=== PATIENT | female | born 1940 | race African-American/Black ===

== ENCOUNTER 2020-01-23 11:23 | Emergency (ER) | payer OTHER, MEDICAID ==
[~2020-01-23] VITALS: Ht 157.5 cm; Wt 52.0 kg
--- NOTE | 2020-01-23 11:48 | PHYS DOC ---
General Adult EDM: Chief Complaint: WEAKNESS/GENERALIZED HPI: HPI: Patient is a 79 year old female who presents with states the last 3 days she has had generalized weakness. Patient states her only history is diabetes and hypertension she has been taking her medications as prescribed. Patient denies abdominal pain, nausea, vomiting, chest pain, shortness of breath, dizziness, fever, chills, nasal congestion, cough, lack of taste or smell, headache, focal weakness, vision changes, dysuria, back pain, neck pain, falls. She states she is not traveling or been rounding by also is been sick. Denies any pain. Review of Systems: Review of Systems: Constitutional: Denies fever or chills. [] Eyes: Denies change in visual acuity. [] HENT: Denies nasal congestion or sore throat. Yellowing of sclera. [] Respiratory: Denies cough or shortness of breath. [] Cardiovascular: Denies chest pain or edema. [] GI: Denies abdominal pain, nausea, vomiting, bloody stools or diarrhea. [] : Denies dysuria. [] Musculoskeletal: Denies back pain or joint pain. [] Integument: Denies rash. [] Neurologic: Denies headache, focal weakness or sensory changes. Generalized weakness. [] Endocrine: Denies polyuria or polydipsia. [] Lymphatic: Denies swollen glands. [] Psychiatric: Denies depression or anxiety. [] Heart Score: Risk Factors: Risk Factors: DM, Current or recent (<one month) smoker, HTN, HLP, family history of CAD, obesity. Risk Scores: Score 0 - 3: 2.5% MACE over next 6 weeks - Discharge Home Score 4 - 6: 20.3% MACE over next 6 weeks - Admit for Clinical Observation Score 7 - 10: 72.7% MACE over next 6 weeks - Early Invasive Strategies Physical Exam: PE: Constitutional: Well developed, well nourished, no acute distress, non-toxic appearance. [] HENT: Normocephalic, atraumatic, bilateral external ears normal, oropharynx moist, no oral exudates, nose normal. [] Eyes: PERRLA, EOMI, conjunctiva normal but yellow, no discharge. [] Neck: Normal range of motion, no tenderness, supple, no stridor. [] Cardiovascular:Heart rate regular rhythm, no murmur [] Lungs & Thorax: Bilateral breath sounds clear to auscultation [] Abdomen: Bowel sounds normal, soft, no tenderness, no masses, no pulsatile masses. [] Skin: Warm, dry, no erythema, no rash. [] Back: No tenderness, no CVA tenderness. [] Extremities: No tenderness, no cyanosis, no clubbing, ROM intact, no edema. [] Neurologic: Alert and oriented X 3, normal motor function, normal sensory fu nction, no focal deficits noted. [] Psychologic: Affect normal, judgement normal, mood normal. [] EKG: EK and read by Dr Alegria as sinus tachycardia 102 and no STEMI [] Radiology/Procedures: Radiology/Procedures: [] Impression: [address] [id number] IMAGING REPORT Signed PATIENT: ELVIA BRADSHAW ACCOUNT: [id number] : 1940 LOCATION: ER AGE: 79 SEX: F EXAM STATUS: REG ER ORD. PHYSICIAN: MAHSA KUNZ APRN REASON: generalized weakness PROCEDURE: PORTABLE CHEST 1V PORTABLE CHEST 1V History: Reason: generalized weakness / Spl. Instructions: / History: Comparison: None. Findings: No consolidation or pleural effusion. Normal heart size. No pneumothorax. Impression: 1. No acute cardiopulmonary process. Electronically signed by: Arben Laura DO (01/23/2020 12:44 PM) [id number] DICTATED and SIGNED BY: ARBEN LAURA DO DATE: 01/23/[address] [id number] IMAGING REPORT Signed PATIENT: ELVIA BRADSHAW ACCOUNT: [id number] : 1940 LOCATION: ER AGE: 79 SEX: F EXAM STATUS: REG ER ORD. PHYSICIAN: MAHSA KUNZ APRN REASON: elevated liver enzymes, Gall stones PROCEDURE: ABDOMEN COMPLETE Examination: Ultrasound abdomen complete HISTORY: History of elevated liver enzymes, gallstones COMPARISON: None available. Findings: The pancreatic duct is minimally prominent measuring 4 mm in diameter. The visualized aorta, IVC within normal limits of dimension. Mild increased echogenicity identified in the liver likely hepatic steatosis. Hydropic gallbladder. Cholelithiasis. The common bile duct is dilated measuring 1.6 cm in diameter. The evaluation of the wall of the gallbladder is limited. There is a cystic structure identified in the right kidney measuring 9 mm. The right kidney measures 9.6 cm in length. The left kidney measures 10 cm in length. The spleen is within normal limits of dimension. IMPRESSION: 1. Dilated common bile duct likely distal common bile duct obstruction. Recommend MRCP follow-up. 2. Cholelithiasis with hydropic gallbladder. 3. Mild hepatic steatosis. Electronically signed by: Harley Gimenez MD (01/23/2020 2:19 PM) [id number] DICTATED and SIGNED BY: HARLEY GIMENEZ MD DATE: 01/23/20 1419 [facility] [address] [place] [address] IMAGING REPORT Signed PATIENT: ELVIA BRADSHAW ACCOUNT: [id number] : 1940 LOCATION: ER AGE: 79 SEX: F EXAM STATUS: REG ER ORD. PHYSICIAN: MAHSA KUNZ APRN REASON: elevated liver PROCEDURE: CT ABDOMEN PELVIS WO CONTRAST CT abdomen pelvis without contrast. HISTORY: Elevated liver labs CT scan the abdomen pelvis was done without contrast. There is a 4 mm nodule on image 2 in the right lower lobe. There are 4 and 5 mm nodules along the diaphragm in the left lower lobe. Correlation with an old study would be of benefit. Fleischner Society guidelines recommend an optional one-year follow-up for high risk individuals. There are 2 tiny densities in the medial left lower lobe on image #2. 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 A liver lesion is not identified. Spleen and adrenal glands are normal. There are calcified gallstones in the gallbladder. Definite pancreatic abnormality is not identified. There is no mass or hydronephrosis in the kidneys. There are tiny calculi in the lower left kidney. There is no bowel obstruction or ascites. Appendix is normal. There are calcified uterine leiomyomas in the uterus. Ovaries appear normal. Bladder is mildly distended without abnormality. There is no small bowel obstruction. IMPRESSION: 1. Cholelithiasis. 2. Normal appendix. 3. Tiny intrarenal calculi left kidney. RS Compliance Statement: One or more of the following individualized dose reduction techniques were utilized for this examination: 1. Automated exposure control 2. Adjustment of the mA and/or kV according to patient size 3. Use of iterative reconstruction technique Electronically signed by: Konstantin Bonner MD (01/23/2020 1:22 PM) [facility] DICTATED and SIGNED BY: KONSTANTIN BONNER MD DATE: 01/23/20 1322 Course & Med Decision Making: Course & Med Decision Making Pertinent Labs and Imaging studies reviewed. (See chart for details) Ambulatory with a steady gait. Speaks in full complete sentences. No extremity edema. Lungs are clear to auscultation all lobes. Vital signs are within normal limits. Afebrile. Abdomen soft and nontender. There is yellowing of her sclera of her eyes. Skin pink warm and dry. Alert and oriented. Denies any numbness or tingling. Patient will be admitted to hospitalist and I will consult GI and surgery. Patient states she wants to leave and go to because at your primary care doctor's. I told her that I could call and try to get her transferred by ambulance. Patient is told that she would have to sign out AMA if she was going to leave without continuation of care due to the severity of her status. Patient explained the severity of her findings. Refusing ambulance. Patient called her grand daughter Baron who states that she will sign her grandmother out AMA and take her to . She states that "she is a nurse and she is now the voice of the patient." She states her grandmother does not want to be here. Have spoken to Dr. Alegria concerning all of this. He is going into speak with the patient and the family. I have spoken to [facility] and got a accepting physician of Dr Kavon Isbell. They states they do not have a bed for her at this time and they will call when a bed is ready. Patient to go by POV. IV is removed. [] Vianca Disclaimer: Vianca Disclaimer: This electronic medical record was generated, in whole or in part, using a voice recognition dictation system. Departure Departure Impression: Primary Impression: Cholelithiasis Qualified Codes: K80.51 - Calculus of bile duct without cholangitis or cholecystitis with obstruction Disposition: 05 TRANSFER OTHER ([facility]) Condition: STABLE Referrals: UNKNOWN PCP NAME (PCP) Justicifation of Admission Dx: Justifications for Admission: Justification of Admission Dx: N/A Comments: cholithiasis MAHSA KUNZ [employer] Jan 23, 2020 11:48
[2020-01-23 11:59] LABS: BASO % 1 % (0-3); EOS % 1 % (0-3); HEMATOCRIT 35.4 % (36.0-47.0); HEMOGLOBIN 12.7 g/dL (12.0-15.5); LYMPH # 1.8 x10^3/uL (1.0-4.8); LYMPH % 36 % (24-48); MEAN CORPUSCULAR HEMOGLOBIN 31 pg (25-35); MEAN CORPUSCULAR HGB CONC 36 g/dL (31-37); MEAN CORPUSCULAR VOLUME 87 fL (79-100); MONO # 0.5 x10^3/uL (0.0-1.1); MONO % 10 % (0-9); NEUT # 2.6 x10^3/uL (1.8-7.7); NEUT % 53 % (31-73); PLATELET COUNT 426 x10^3/uL (140-400); RED BLOOD COUNT 4.07 x10^6/uL (3.50-5.40); RED CELL DISTRIBUTION WIDTH 16.1 % (11.5-14.5)
[2020-01-23 12:07] LABS: CALCIUM 9.1 mg/dL (8.5-10.1); CREATININE 1.6 mg/dL (0.6-1.0); GFR 37.4; POTASSIUM 3.4 mmol/L (3.5-5.1)
[2020-01-23 12:12] LABS: ALBUMIN 3.1 g/dL (3.4-5.0); ALBUMIN/GLOBULIN RATIO 0.8 (1.0-1.7); TOTAL BILIRUBIN 6.2 mg/dL (0.2-1.0); TOTAL PROTEIN 7.2 g/dL (6.4-8.2)
--- NOTE | 2020-01-23 12:22 | EKG ---
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
[2020-01-23] MEDS ORDERED: IV NORMAL SALINE 1000ML BAG 1,000 ML IV ONE (12:30)
--- NOTE | 2020-01-23 12:47 | RAD ---
PORTABLE CHEST 1V History: Reason: generalized weakness / Spl. Instructions: / History: Comparison: None. Findings: No consolidation or pleural effusion. Normal heart size. No pneumothorax. Impression: 1. No acute cardiopulmonary process. Electronically signed by: Arben Laura DO (01/23/2020 12:44 PM) [id number]
--- NOTE | 2020-01-23 13:25 | RAD ---
CT abdomen pelvis without contrast. HISTORY: Elevated liver labs CT scan the abdomen pelvis was done without contrast. There is a 4 mm nodule on image 2 in the right lower lobe. There are 4 and 5 mm nodules along the diaphragm in the left lower lobe. Correlation with an old study would be of benefit. Fleischner Society guidelines recommend an optional one-year follow-up for high risk individuals. There are 2 tiny densities in the medial left lower lobe on image #2. 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 A liver lesion is not identified. Spleen and adrenal glands are normal. There are calcified gallstones in the gallbladder. Definite pancreatic abnormality is not identified. There is no mass or hydronephrosis in the kidneys. There are tiny calculi in the lower left kidney. There is no bowel obstruction or ascites. Appendix is normal. There are calcified uterine leiomyomas in the uterus. Ovaries appear normal. Bladder is mildly distended without abnormality. There is no small bowel obstruction. IMPRESSION: 1. Cholelithiasis. 2. Normal appendix. 3. Tiny intrarenal calculi left kidney. RS Compliance Statement: One or more of the following individualized dose reduction techniques were utilized for this examination: 1. Automated exposure control 2. Adjustment of the mA and/or kV according to patient size 3. Use of iterative reconstruction technique Electronically signed by: Konstantin Bonner MD (01/23/2020 1:22 PM) [facility]
[2020-01-23 13:44] LABS: PROTHROMBIN TIME PATIENT 13.8 SEC (11.7-14.0)
--- NOTE | 2020-01-23 14:22 | RAD ---
Examination: Ultrasound abdomen complete HISTORY: History of elevated liver enzymes, gallstones COMPARISON: None available. Findings: The pancreatic duct is minimally prominent measuring 4 mm in diameter. The visualized aorta, IVC within normal limits of dimension. Mild increased echogenicity identified in the liver likely hepatic steatosis. Hydropic gallbladder. Cholelithiasis. The common bile duct is dilated measuring 1.6 cm in diameter. The evaluation of the wall of the gallbladder is limited. There is a cystic structure identified in the right kidney measuring 9 mm. The right kidney measures 9.6 cm in length. The left kidney measures 10 cm in length. The spleen is within normal limits of dimension. IMPRESSION: 1. Dilated common bile duct likely distal common bile duct obstruction. Recommend MRCP follow-up. 2. Cholelithiasis with hydropic gallbladder. 3. Mild hepatic steatosis. Electronically signed by: Harley Pappas MD (01/23/2020 2:19 PM) [id number]
[2020-01-23] MEDS ORDERED: IV NORMAL SALINE 1000ML BAG 1,000 ML IV SCH (14:38)
[2020-01-23] MEDS ORDERED: fentaNYL PF VIAL 100 MCG/2 ML VIAL IV PRN (14:45)
[2020-01-23] MEDS ORDERED: ONDANSETRON PF 4 MG/2 ML VIAL. IV PRN (14:45)
--- NOTE | 2020-01-23 15:14 | PDOC ---
Objective: Vital Signs: Vital Signs Date Time Temp Pulse Resp B/P (MAP) Pulse Ox O2 Delivery O2 Flow Rate FiO2 01/23/20 12:41 82 20 100 01/23/20 11:34 98.5 119/69 (86) Room Air 98.5 Labs: Laboratory Tests Test 01/23/20 11:51 01/23/20 12:30 White Blood Count 5.0 x10^3/uL Red Blood Count 4.07 x10^6/uL Hemoglobin 12.7 g/dL Hematocrit 35.4 % Mean Corpuscular Volume 87 fL Mean Corpuscular Hemoglobin 31 pg Mean Corpuscular Hemoglobin Concent 36 g/dL Red Cell Distribution Width 16.1 % Platelet Count 426 x10^3/uL Neutrophils (%) (Auto) 53 % Lymphocytes (%) (Auto) 36 % Monocytes (%) (Auto) 10 % Eosinophils (%) (Auto) 1 % Basophils (%) (Auto) 1 % Neutrophils # (Auto) 2.6 x10^3/uL Lymphocytes # (Auto) 1.8 x10^3/uL Monocytes # (Auto) 0.5 x10^3/uL Eosinophils # (Auto) 0.0 x10^3/uL Basophils # (Auto) 0.0 x10^3/uL Prothrombin Time 13.8 SEC Prothromb Time International Ratio 1.1 Sodium Level 124 mmol/L Potassium Level 3.4 mmol/L Chloride Level 85 mmol/L Carbon Dioxide Level 28 mmol/L Anion Gap 11 Blood Urea Nitrogen 19 mg/dL Creatinine 1.6 mg/dL Estimated GFR (Cockcroft-Gault) 37.4 BUN/Creatinine Ratio 12 Glucose Level 234 mg/dL Calcium Level 9.1 mg/dL Total Bilirubin 6.2 mg/dL Aspartate Amino Transf (AST/SGOT) 644 U/L Alanine Aminotransferase (ALT/SGPT) 294 U/L Alkaline Phosphatase 327 U/L Troponin I Quantitative 0.135 ng/mL Total Protein 7.2 g/dL Albumin 3.1 g/dL Albumin/Globulin Ratio 0.8 Ammonia 26 mcmol/L Lipase 281 U/L Imaging: Abd US IMPRESSION: 1. Dilated common bile duct likely distal common bile duct obstruction. Recommend MRCP follow-up. 2. Cholelithiasis with hydropic gallbladder. 3. Mild hepatic steatosis. CT A/P IMPRESSION: 1. Cholelithiasis. 2. Normal appendix. 3. Tiny intrarenal calculi left kidney. CXR Impression: 1. No acute cardiopulmonary process. PE: GEN: NAD - walked from restroom to exam room, then sat on bed NEURO/PSYCH: A & O 3 A/P: Weakness Hyponatremia, elevated LFTs, mildly elevated troponin Cholelithiasis, dilated CBD, prominent PD -- Consulted by ER for cholelithiasis w/ obstruction. Attempted to see pt in ER - we had a very brief discussion - she said she was feeling weak for 3-4 days. Then granddaughter called several times and arrived soon after to potato picker and take to [facility]. Plans to sign out AMA. D/w ER staff. Justicifation of Admission Dx: Justifications for Admission: Justification of Admission Dx: Yes MARKUS WHITEHEAD Jan 23, 2020 15:14
[2020-01-23 16:32] VITALS: BP 141/75
== END 2020-01-23 16:18 | disposition home or self-care (01) ==
LOC: ER 11:23 → 4 NORTH 14:40 → UNDOADMIN 14:40
DX: K80.70 Calculus of gallbladder and bile duct without cholecystitis without obstruction (principal); R00.0 Tachycardia, unspecified; E11.9 Type 2 diabetes mellitus without complications; I10 Essential (primary) hypertension; K76.0 Fatty (change of) liver, not elsewhere classified
CPT/HCPCS: 36415; 71045; 74176; 76700; 80053; 82140; 83690; 84484; 85025; 85610; 93005; 96360; 96361; 99285; J7030